=== PATIENT | female | born 1960 | race African-American/Black ===

== ENCOUNTER 2020-02-07 19:37 | Inpatient (IN) | payer MEDICAID ==
[~2020-02-07] VITALS: Ht 105 cm; Wt 76.2 kg
[2020-02-07 19:45] VITALS: BP 152/80
[2020-02-07 20:00] VITALS: BP 152/80
[2020-02-07] MEDS ORDERED: ACETAMINOPHEN 325MG TABLET PO PRN (23:15)
[2020-02-07] MEDS ORDERED: ALBUTEROL 6.7GM HFA INHALER ORI PRN (23:15)
[2020-02-07] MEDS ORDERED: HYDROCODONE/ACETAMINOPHEN 5/325MG TABLET PO PRN (23:15)
[2020-02-07] MEDS ORDERED: ALBUTEROL (0.083%) 2.5MG/3ML NEB HHN PRN (23:15)
[2020-02-07] MEDS ORDERED: NON FORMULARY PATIENT HOME MED XX SCH (23:15)
[2020-02-07] MEDS ORDERED: ATORVASTATIN CALCIUM 40MG TABLET PO SCH (23:15)
[2020-02-08 07:30] LABS: BASOPHILS % 0.5 % (0.0-2.0); EOSINOPHILS % 6.5 % (0.0-5.0); HEMATOCRIT. 37.1 % (36.0-48.0); HEMOGLOBIN. 12.3 g/dL (12.0-16.0); LYMPHOCYTES % 25.1 % (20.0-50.0); MEAN CORPUSCULAR HEMOGLOBIN 26.7 pg (28.0-32.0); MEAN CORPUSCULAR VOLUME 80.8 fL (81.0-99.0); MEAN PLATELET VOLUME 8.1 fl (7.4-10.4); MONOCYTES % 9.7 % (2.0-8.0); NEUTROPHILS % 58.2 % (40.0-76.0); PLATELET 242 x1000/uL (130-400); RED BLOOD CELL COUNT 4.59 mill/uL (4.2-5.4); RED CELL DISTRIBUTION WIDTH 15.5 % (11.6-14.6)
[2020-02-08 07:42] VITALS: BP 123/72
[2020-02-08 07:47] LABS: CHLORIDE 106 mEq/L (98-107)
[2020-02-08] MEDS ORDERED: ASPIRIN 325MG EC TABLET PO SCH (09:00)
[2020-02-08] MEDS ORDERED: BISACODYL 5MG TABLET PO PRN (09:00)
[2020-02-08] MEDS ORDERED: NIFEDIPINE XL 60MG TAB PO SCH (09:00)
[2020-02-08] MEDS ORDERED: LACTULOSE 20G/30ML UDC PO PRN (09:00)
[2020-02-08] MEDS ORDERED: LISINOPRIL 10MG TABLET PO SCH (09:00)
[2020-02-08] MEDS ORDERED: NA PHOS,M-B/NA PHOS,DI-BA ENEMA 118ML PR PRN (09:00)
[2020-02-08] MEDS ORDERED: BUDESONIDE 0.5MG/2ML NEB HHN SCH (09:00)
[2020-02-08] MEDS: CARVEDILOL 12.5MG TABLET PO SCH ×2 (09:47→18:18)
[2020-02-08 14:44] LABS: CREATINE KINASE 41 IU/L (26-192)
[2020-02-08] MEDS ORDERED: MONTELUKAST SODIUM 10MG TABLET PO SCH (17:00)
[2020-02-08 18:12] LABS: T4 FREE 1.61 ng/dL (0.76-1.46)
[2020-02-08] MEDS ORDERED: MORPHINE SULFATE 2 MG/ML CPJ (NOT FOR IM USE) IV PRN (18:15)
[2020-02-08] MEDS ORDERED: NICARDIPINE 100 MG in SODIUM CHLORIDE 0.9% 60 ML IV PRN (18:15)
[2020-02-08] MEDS ORDERED: DEXT 5%/LACTATED RINGERS 1,000 ML IV SCH (18:45)
[2020-02-08 19:00] VITALS: BP 108/73
[2020-02-08 20:45] LABS: CLARITY URINE CLEAR (CLEAR); COLOR URINE YELLOW (YELLOW); KETONES URINE NEGATIVE (NEGATIVE); LEUKOCYTE ESTERASE URINE 3+ (NEGATIVE); NITRITE URINE NEGATIVE (NEGATIVE); OCCULT BLOOD URINE NEGATIVE (NEGATIVE); PH URINE 6.5 (4.5-8.0); PROTEIN URINE NEGATIVE (NEGATIVE); SPECIFIC GRAVITY URINE 1.019 (1.005-1.030); UROBILINOGEN URINE 0.2 E.U./dL (0.2-1.0)
[2020-02-08] MEDS ORDERED: LEVETIRACETAM 500MG PREMIX 100 ML IV SCH (21:00)
[2020-02-08 21:49] LABS: *AMPHETAMINES SCREEN URINE NEGATIVE (NEGATIVE); *BARBITURATES SCREEN URINE NEGATIVE (NEGATIVE); *BENZODIAZEPINES SCREEN URINE NEGATIVE (NEGATIVE); *COCAINE SCREEN URINE PRESUMTIVE POSITIVE (NEGATIVE); METHADONE URINE SCREEN NEGATIVE (NEGATIVE)
[2020-02-08 21:50] LABS: CANNABINOID URINE SCREEN NEGATIVE (NEGATIVE); OPIATES URINE SCREEN NEGATIVE (NEGATIVE); PHENCYCLIDINE URINE SCREEN NEGATIVE (NEGATIVE)
[2020-02-09] MEDS ORDERED: LIP40 MT (01:29)
[2020-02-09] MEDS ORDERED: NIFE90TA2 PO (01:29)
[2020-02-09] MEDS ORDERED: CEPHULAC (01:29)
[2020-02-09] MEDS ORDERED: HYDR-3281 PO (01:29)
[2020-02-09] MEDS ORDERED: MONT10TA21 PO (01:29)
[2020-02-09] MEDS ORDERED: TOPUD PO (01:29)
[2020-02-09] MEDS ORDERED: COR12 PO (01:29)
[2020-02-09] MEDS ORDERED: ACET650S27 RC (01:29)
[2020-02-09] MEDS ORDERED: CLOPIDOGREL 75MG TABLET PO SCH (09:00)
== END 2020-02-08 19:50 | disposition short-term general hospital (02) | DRG 45 ==
PROVIDERS: ADMIT Physical Medicine & Rehabilitation Spinal Cord Injury Medicine; ATTEND Family Medicine Adult Medicine
DX: I63.9 Cerebral infarction, unspecified (principal); G82.50 Quadriplegia, unspecified; R47.1 Dysarthria and anarthria; R47.01 Aphasia; R13.10 Dysphagia, unspecified; I50.42 Chronic combined systolic (congestive) and diastolic (congestive) heart failure; N18.9 Chronic kidney disease, unspecified; I13.0 Hypertensive heart and chronic kidney disease with heart failure and stage 1 through stage 4 chronic kidney disease, or unspecified chronic kidney disease; N17.9 Acute kidney failure, unspecified; J44.9 Chronic obstructive pulmonary disease, unspecified; M06.9 Rheumatoid arthritis, unspecified; E03.9 Hypothyroidism, unspecified; R53.81 Other malaise; F14.10 Cocaine abuse, uncomplicated; E44.0 Moderate protein-calorie malnutrition; E78.5 Hyperlipidemia, unspecified; E78.00 Pure hypercholesterolemia, unspecified; F20.0 Paranoid schizophrenia; I42.9 Cardiomyopathy, unspecified; Z68.44 Body mass index [BMI] 60.0-69.9, adult; Z90.710 Acquired absence of both cervix and uterus; Z86.73 Personal history of transient ischemic attack (TIA), and cerebral infarction without residual deficits; Z93.1 Gastrostomy status
CPT/HCPCS: 36415; 70544; 70553; 71046; 80053; 80305; 81003; 82550; 83036; 83880; 84134; 84439; 84481; 85025; 92523; 92610; 93005; 97116; 97162; 97166; 97530; 97535; J1953

== ENCOUNTER 2020-02-08 19:28 | Inpatient (IN) | payer MEDICAID ==
[2020-02-08] VITALS (7 sets, daily range): BP systolic 101–131; BP diastolic 56–76
[~2020-02-08] VITALS: Ht 170.2 cm; Wt 43.6 kg
[2020-02-08] MEDS ORDERED: NICARDIPINE 50 MG in SODIUM CHLORIDE 0.9% 230 ML IV PRN (20:30)
[2020-02-08] MEDS ORDERED: MORPHINE SULFATE 2 MG/ML CPJ (NOT FOR IM USE) IV PRN (20:30)
[2020-02-08] MEDS ORDERED: NICARDIPINE 100 MG in SODIUM CHLORIDE 0.9% 60 ML IV PRN (21:00)
[2020-02-08] MEDS: DEXT 5%/LACTATED RINGERS 1,000 ML IV SCH (21:41)
[2020-02-08] MEDS: LEVETIRACETAM 500MG PREMIX 100 ML IV SCH (23:07)
[2020-02-09] VITALS (74 sets, daily range): BP systolic 96–156; BP diastolic 41–96
[2020-02-09] MEDS ORDERED: LACTULOSE 20G/30ML UDC PO PRN (00:45)
[2020-02-09] MEDS ORDERED: HYDR-3281 PO (01:29)
[2020-02-09] MEDS ORDERED: NIFE90TA2 PO (01:29)
[2020-02-09] MEDS ORDERED: COR12 PO (01:29)
[2020-02-09] MEDS ORDERED: ACET650S27 RC (01:29)
[2020-02-09] MEDS ORDERED: CEPHULAC (01:29)
[2020-02-09] MEDS ORDERED: MONT10TA21 PO (01:29)
[2020-02-09] MEDS ORDERED: LIP40 MT (01:29)
[2020-02-09] MEDS ORDERED: TOPUD PO (01:29)
[2020-02-09] MEDS ORDERED: HYDROCODONE/ACETAMINOPHEN 5/325MG TABLET PO PRN (01:30)
[2020-02-09] MEDS ORDERED: BISACODYL 5MG TABLET PO PRN (01:30)
[2020-02-09] MEDS ORDERED: ACETAMINOPHEN 325MG TABLET PO PRN (01:30)
[2020-02-09 05:48] LABS: BASOPHILS % 0.7 % (0.0-2.0); EOSINOPHILS % 6.4 % (0.0-5.0); HEMATOCRIT. 37.6 % (36.0-48.0); HEMOGLOBIN. 12.3 g/dL (12.0-16.0); MEAN CORPUSCULAR HEMOGLOBIN 26.5 pg (28.0-32.0); MEAN CORPUSCULAR VOLUME 80.8 fL (81.0-99.0); MONOCYTES % 8.8 % (2.0-8.0); NEUTROPHILS % 56.1 % (40.0-76.0); PLATELET 255 x1000/uL (130-400); RED BLOOD CELL COUNT 4.65 mill/uL (4.2-5.4); RED CELL DISTRIBUTION WIDTH 15.1 % (11.6-14.6)
[2020-02-09] MEDS: LEVETIRACETAM 500MG PREMIX 100 ML IV SCH ×2 (08:44→20:45)
[2020-02-09] MEDS: NIFEDIPINE XL 60MG TAB PO SCH (09:29)
[2020-02-09] MEDS: CARVEDILOL 12.5MG TABLET PO SCH ×2 (09:29→20:44)
[2020-02-09] MEDS: DEXT 5%/LACTATED RINGERS 1,000 ML IV SCH (16:46)
[2020-02-09] MEDS: ATORVASTATIN CALCIUM 40MG TABLET PO SCH (20:44)
[2020-02-09] MEDS: ALBUTEROL (0.083%) 2.5MG/3ML NEB HHN SCH (21:00)
[2020-02-10] VITALS (69 sets, daily range): BP systolic 85–157; BP diastolic 31–93
[2020-02-10] MEDS: ALBUTEROL (0.083%) 2.5MG/3ML NEB HHN SCH ×4 (01:32→20:33)
[2020-02-10 05:51] LABS: BASOPHILS % 0.4 % (0.0-2.0); HEMATOCRIT. 38.5 % (36.0-48.0); HEMOGLOBIN. 12.7 g/dL (12.0-16.0); LYMPHOCYTES % 30.8 % (20.0-50.0); MEAN CORPUSCULAR HEMOGLOBIN 26.5 pg (28.0-32.0); MEAN CORPUSCULAR VOLUME 80.3 fL (81.0-99.0); MEAN PLATELET VOLUME 8.1 fl (7.4-10.4); MONOCYTES % 5.5 % (2.0-8.0); NEUTROPHILS % 56.3 % (40.0-76.0); PLATELET 252 x1000/uL (130-400); RED CELL DISTRIBUTION WIDTH 15.3 % (11.6-14.6)
[2020-02-10 06:12] LABS: PHOSPHORUS 3.7 mg/dL (2.5-4.9)
[2020-02-10] MEDS: LEVETIRACETAM 500MG PREMIX 100 ML IV SCH ×2 (09:16→20:02)
[2020-02-10] MEDS: CARVEDILOL 12.5MG TABLET PO SCH ×2 (09:17→20:03)
[2020-02-10] MEDS: NIFEDIPINE XL 60MG TAB PO SCH (09:17)
[2020-02-10] MEDS ORDERED: AMLODIPINE 5MG TABLET PO NR (19:00)
[2020-02-10] MEDS: AMLODIPINE 5MG TABLET PO SCH (20:02)
[2020-02-10] MEDS: ATORVASTATIN CALCIUM 40MG TABLET PO SCH (20:02)
[2020-02-10] MEDS ORDERED: CLONIDINE 0.1MG TABLET PO PRN (22:15)
[2020-02-11] VITALS: BP 151/87
[2020-02-11] MEDS ORDERED: HYDRALAZINE 20MG/ML VIAL IV ONE (01:00)
[2020-02-11] MEDS ORDERED: HYDRALAZINE HCL 10MG TABLET PO SCH (02:00)
[2020-02-11 04:00] VITALS: BP 143/87
[2020-02-11 06:21] LABS: BASOPHILS % 0.5 % (0.0-2.0); EOSINOPHILS % 6.8 % (0.0-5.0); HEMATOCRIT. 37.3 % (36.0-48.0); HEMOGLOBIN. 12.3 g/dL (12.0-16.0); LYMPHOCYTES % 25.6 % (20.0-50.0); MEAN CORPUSCULAR HEMOGLOBIN 26.4 pg (28.0-32.0); MEAN CORPUSCULAR VOLUME 80.2 fL (81.0-99.0); MEAN PLATELET VOLUME 8.7 fl (7.4-10.4); MONOCYTES % 9.9 % (2.0-8.0); NEUTROPHILS % 57.2 % (40.0-76.0); PLATELET 205 x1000/uL (130-400); RED BLOOD CELL COUNT 4.65 mill/uL (4.2-5.4)
[2020-02-11] MEDS: ALBUTEROL (0.083%) 2.5MG/3ML NEB HHN SCH ×4 (07:55→20:43)
[2020-02-11 08:00] VITALS: BP 154/90
[2020-02-11] MEDS: CARVEDILOL 12.5MG TABLET PO SCH (09:48)
[2020-02-11] MEDS: AMLODIPINE 5MG TABLET PO SCH ×2 (09:48→20:24)
[2020-02-11] MEDS: LEVETIRACETAM 500MG PREMIX 100 ML IV SCH ×2 (09:48→20:25)
[2020-02-11 12:00] VITALS: BP 154/96
[2020-02-11 16:00] VITALS: BP 147/78
[2020-02-11 20:19] VITALS: BP 127/80
[2020-02-11] MEDS: ATORVASTATIN CALCIUM 40MG TABLET PO SCH (20:24)
[2020-02-11] MEDS: HYDRALAZINE HCL 10MG TABLET PO SCH (20:25)
[2020-02-12] VITALS (7 sets, daily range): BP systolic 116–147; BP diastolic 70–88
[2020-02-12] MEDS: ALBUTEROL (0.083%) 2.5MG/3ML NEB HHN SCH ×4 (01:19→20:00)
[2020-02-12 07:54] LABS: BASOPHILS % 0.6 % (0.0-2.0); EOSINOPHILS % 7.2 % (0.0-5.0); HEMATOCRIT. 37.6 % (36.0-48.0); HEMOGLOBIN. 12.7 g/dL (12.0-16.0); LYMPHOCYTES % 25.5 % (20.0-50.0); MEAN CORPUSCULAR VOLUME 80.1 fL (81.0-99.0); MEAN PLATELET VOLUME 8.1 fl (7.4-10.4); MONOCYTES % 9.7 % (2.0-8.0); PLATELET 246 x1000/uL (130-400); RED CELL DISTRIBUTION WIDTH 15.1 % (11.6-14.6)
[2020-02-12] MEDS: AMLODIPINE 5MG TABLET PO SCH ×2 (09:08→20:17)
[2020-02-12] MEDS: HYDRALAZINE HCL 10MG TABLET PO SCH ×2 (09:08→20:18)
[2020-02-12] MEDS: LEVETIRACETAM 500MG PREMIX 100 ML IV SCH ×2 (09:08→20:17)
[2020-02-12] MEDS ORDERED: BARIUM SULFATE 176 GM SUSP.RECON ONE (13:33)
[2020-02-12] MEDS: ATORVASTATIN CALCIUM 40MG TABLET PO SCH (20:17)
[2020-02-13] VITALS: BP 140/75
[2020-02-13] MEDS: ALBUTEROL (0.083%) 2.5MG/3ML NEB HHN SCH ×3 (02:58→13:35)
[2020-02-13 04:00] VITALS: BP 130/70
[2020-02-13 08:00] VITALS: BP 160/101
[2020-02-13] MEDS: AMLODIPINE 5MG TABLET PO SCH (09:50)
[2020-02-13] MEDS: HYDRALAZINE HCL 10MG TABLET PO SCH (09:50)
[2020-02-13] MEDS: LEVETIRACETAM 500MG PREMIX 100 ML IV SCH (09:50)
[2020-02-13 11:50] VITALS: BP 156/97
[2020-02-13] MEDS ORDERED: ASPIRIN 81MG TABLET PO SCH (13:00)
[2020-02-13] MEDS ORDERED: CLOPIDOGREL 75MG TABLET PO SCH (13:00)
[2020-02-13 15:20] VITALS: BP 120/84
== END 2020-02-13 15:45 | DRG 45 ==
LOC: MICUNO 19:28 → 8WST 02-10 21:07
PROVIDERS: ADMIT Family Medicine Adult Medicine; ATTEND Family Medicine Adult Medicine
DX: I63.9 Cerebral infarction, unspecified (principal); G82.50 Quadriplegia, unspecified; N17.9 Acute kidney failure, unspecified; I13.0 Hypertensive heart and chronic kidney disease with heart failure and stage 1 through stage 4 chronic kidney disease, or unspecified chronic kidney disease; F20.0 Paranoid schizophrenia; I42.9 Cardiomyopathy, unspecified; I50.40 Unspecified combined systolic (congestive) and diastolic (congestive) heart failure; I61.1 Nontraumatic intracerebral hemorrhage in hemisphere, cortical; J44.9 Chronic obstructive pulmonary disease, unspecified; M06.9 Rheumatoid arthritis, unspecified; N18.3 Chronic kidney disease, stage 3 (moderate); R13.10 Dysphagia, unspecified; E03.9 Hypothyroidism, unspecified; E46 Unspecified protein-calorie malnutrition; E78.5 Hyperlipidemia, unspecified; F14.90 Cocaine use, unspecified, uncomplicated; R47.01 Aphasia; R47.1 Dysarthria and anarthria; I34.0 Nonrheumatic mitral (valve) insufficiency; I69.359 Hemiplegia and hemiparesis following cerebral infarction affecting unspecified side; Z93.1 Gastrostomy status; Z79.899 Other long term (current) drug therapy; Z68.1 Body mass index [BMI] 19.9 or less, adult
CPT/HCPCS: 36415; 71046; 74230; 80048; 83735; 84100; 85025; 92523; 92610; 92611; 93005; 93306; 93880; 94640; 97116; 97162; 97166; 97530; J1953; J3490; J7050; J7121

== ENCOUNTER 2020-02-13 15:50 | Inpatient (IN) | payer MEDICAID ==
[~2020-02-13] VITALS: Ht 170.2 cm; Wt 48.7 kg
[~2020-02-13 15:50] MED LIST: ACET650S27 RC; CEPHULAC; COR12 PO; LIP40 MT; MONT10TA21 PO; NIFE90TA2 PO; TOPUD PO
[2020-02-13 16:00] VITALS: BP 139/73
[2020-02-13] MEDS ORDERED: BISACODYL 5MG TABLET PO PRN (16:30)
[2020-02-13 19:06] VITALS: BP 139/73
[2020-02-13 20:00] VITALS: BP 138/83
[2020-02-13] MEDS: ATORVASTATIN CALCIUM 40MG TABLET PO SCH (22:16)
[2020-02-13] MEDS: AMLODIPINE 5MG TABLET PO SCH (22:17)
[2020-02-13] MEDS: LEVETIRACETAM 500MG TABLET PO SCH (22:18)
[2020-02-13] MEDS: HYDRALAZINE HCL 10MG TABLET PO SCH (22:18)
[2020-02-14 06:02] LABS: CHLORIDE 108 mEq/L (98-107)
[2020-02-14 06:32] LABS: BASOPHILS % 0.6 % (0.0-2.0); HEMATOCRIT. 37.9 % (36.0-48.0); HEMOGLOBIN. 12.5 g/dL (12.0-16.0); LYMPHOCYTES % 23.6 % (20.0-50.0); MEAN CORPUSCULAR HEMOGLOBIN 26.5 pg (28.0-32.0); MEAN CORPUSCULAR VOLUME 80.4 fL (81.0-99.0); MONOCYTES % 10.3 % (2.0-8.0); NEUTROPHILS % 58.5 % (40.0-76.0); PLATELET 238 x1000/uL (130-400); RED BLOOD CELL COUNT 4.72 mill/uL (4.2-5.4); RED CELL DISTRIBUTION WIDTH 15.3 % (11.6-14.6)
[2020-02-14 07:50] VITALS: BP 131/76
[2020-02-14] MEDS: LEVETIRACETAM 500MG TABLET PO SCH ×2 (08:33→20:38)
[2020-02-14] MEDS: AMLODIPINE 5MG TABLET PO SCH ×2 (08:34→20:39)
[2020-02-14] MEDS: CLOPIDOGREL 75MG TABLET PO SCH (08:34)
[2020-02-14] MEDS: HYDRALAZINE HCL 10MG TABLET PO SCH ×2 (08:34→20:38)
[2020-02-14] MEDS: ASPIRIN 81MG TABLET PO SCH (08:34)
[2020-02-14] MEDS: ALBUTEROL (0.083%) 2.5MG/3ML NEB HHN SCH ×3 (10:57→21:25)
[2020-02-14 12:31] LABS: CLARITY URINE CLEAR (CLEAR); COLOR URINE YELLOW (YELLOW); KETONES URINE NEGATIVE (NEGATIVE); LEUKOCYTE ESTERASE URINE 2+ (NEGATIVE); NITRITE URINE NEGATIVE (NEGATIVE); OCCULT BLOOD URINE NEGATIVE (NEGATIVE); PROTEIN URINE NEGATIVE (NEGATIVE); SPECIFIC GRAVITY URINE 1.019 (1.005-1.030)
[2020-02-14] MEDS: LACTULOSE 20G/30ML UDC PO PRN (14:32)
[2020-02-14 15:22] VITALS: BP_SYST 125; BP_SYST 126; BP_SYST 137; BP_DIAS 74; BP_DIAS 80; BP_DIAS 86
[2020-02-14 20:00] VITALS: BP 128/84
[2020-02-14] MEDS: ATORVASTATIN CALCIUM 40MG TABLET PO SCH (20:38)
[2020-02-15] MEDS: ALBUTEROL (0.083%) 2.5MG/3ML NEB HHN SCH ×3 (02:15→19:55)
[2020-02-15 06:42] LABS: CHLORIDE 107 mEq/L (98-107)
[2020-02-15 06:45] LABS: BASOPHILS % 0.5 % (0.0-2.0); EOSINOPHILS % 7.1 % (0.0-5.0); LYMPHOCYTES % 26.6 % (20.0-50.0); MEAN CORPUSCULAR HEMOGLOBIN 26.7 pg (28.0-32.0); MEAN PLATELET VOLUME 8.1 fl (7.4-10.4); NEUTROPHILS % 55.8 % (40.0-76.0); PLATELET 233 x1000/uL (130-400); RED BLOOD CELL COUNT 4.88 mill/uL (4.2-5.4); RED CELL DISTRIBUTION WIDTH 15.3 % (11.6-14.6)
[2020-02-15 06:50] LABS: PHOSPHORUS 4.3 mg/dL (2.5-4.9)
[2020-02-15 06:51] LABS: LDL CHOLESTEROL 49 mg/dL (5-100)
[2020-02-15 06:52] LABS: TOTAL IRON BINDING CAPACITY 305 ug/dL (250-450)
[2020-02-15 06:53] LABS: HDL CHOLESTEROL 67 mg/dL (40-59)
[2020-02-15 06:55] LABS: T4 FREE 1.21 ng/dL (0.76-1.46)
[2020-02-15 07:01] LABS: FOLIC ACID (FOLATE) SERUM 12.4 ng/mL (>5.38)
[2020-02-15 07:24] VITALS: BP 150/74
[2020-02-15] MEDS: CLOPIDOGREL 75MG TABLET PO SCH (08:42)
[2020-02-15] MEDS: ASPIRIN 81MG TABLET PO SCH (08:42)
[2020-02-15] MEDS: HYDRALAZINE HCL 10MG TABLET PO SCH (08:42)
[2020-02-15] MEDS: LEVETIRACETAM 500MG TABLET PO SCH ×2 (08:42→21:12)
[2020-02-15] MEDS: AMLODIPINE 5MG TABLET PO SCH (08:42)
[2020-02-15] MEDS ORDERED: MAGNESIUM 2 G PREMIX 50 ML IV ONE (12:30)
[2020-02-15 14:01] VITALS: BP 130/77
[2020-02-15] MEDS: HYDRALAZINE HCL 50MG TABLET PO SCH ×2 (14:01→21:14)
[2020-02-15 14:03] VITALS: BP_SYST 125; BP_SYST 137; BP_DIAS 78; BP_DIAS 91
[2020-02-15 20:00] VITALS: BP 116/77
[2020-02-15] MEDS: ATORVASTATIN CALCIUM 40MG TABLET PO SCH (21:12)
[2020-02-16] MEDS: HYDRALAZINE HCL 50MG TABLET PO SCH ×3 (05:47→21:30)
[2020-02-16 07:25] LABS: BASOPHILS % 0.5 % (0.0-2.0); EOSINOPHILS % 7.3 % (0.0-5.0); HEMATOCRIT. 38.5 % (36.0-48.0); HEMOGLOBIN. 12.9 g/dL (12.0-16.0); LYMPHOCYTES % 21.6 % (20.0-50.0); MEAN CORPUSCULAR HEMOGLOBIN 26.6 pg (28.0-32.0); MEAN CORPUSCULAR VOLUME 79.5 fL (81.0-99.0); MEAN PLATELET VOLUME 7.9 fl (7.4-10.4); MONOCYTES % 9.4 % (2.0-8.0); NEUTROPHILS % 61.2 % (40.0-76.0); PLATELET 230 x1000/uL (130-400); RED BLOOD CELL COUNT 4.84 mill/uL (4.2-5.4); RED CELL DISTRIBUTION WIDTH 15.2 % (11.6-14.6)
[2020-02-16 07:31] LABS: CHLORIDE 107 mEq/L (98-107)
[2020-02-16 07:37] LABS: PHOSPHORUS 4.3 mg/dL (2.5-4.9)
[2020-02-16 08:08] VITALS: BP 109/55
[2020-02-16] MEDS: AMLODIPINE 5MG TABLET PO SCH (08:55)
[2020-02-16] MEDS: ALBUTEROL (0.083%) 2.5MG/3ML NEB HHN SCH ×4 (09:07→21:37)
[2020-02-16] MEDS: CLOPIDOGREL 75MG TABLET PO SCH (09:23)
[2020-02-16] MEDS: LEVETIRACETAM 500MG TABLET PO SCH ×2 (09:23→21:31)
[2020-02-16] MEDS: ASPIRIN 81MG TABLET PO SCH (09:23)
[2020-02-16 20:00] VITALS: BP 122/62
[2020-02-16] MEDS: ATORVASTATIN CALCIUM 40MG TABLET PO SCH (21:30)
[2020-02-17] MEDS: HYDRALAZINE HCL 50MG TABLET PO SCH ×3 (05:54→21:40)
[2020-02-17] MEDS: ALBUTEROL (0.083%) 2.5MG/3ML NEB HHN SCH ×3 (07:30→22:28)
[2020-02-17 08:02] LABS: PHOSPHORUS 4.7 mg/dL (2.5-4.9)
[2020-02-17 08:03] VITALS: BP 129/60
[2020-02-17] MEDS: LEVETIRACETAM 500MG TABLET PO SCH ×2 (09:54→21:41)
[2020-02-17] MEDS: AMLODIPINE 5MG TABLET PO SCH (09:55)
[2020-02-17] MEDS: ASPIRIN 81MG TABLET PO SCH (09:55)
[2020-02-17] MEDS: CLOPIDOGREL 75MG TABLET PO SCH (09:55)
[2020-02-17 14:04] VITALS: BP_SYST 122; BP_SYST 131; BP_DIAS 76; BP_DIAS 79
[2020-02-17 20:00] VITALS: BP_SYST 105; BP_SYST 107; BP_DIAS 69; BP_DIAS 70
[2020-02-17] MEDS: ATORVASTATIN CALCIUM 40MG TABLET PO SCH (21:41)
[2020-02-18] MEDS: ALBUTEROL (0.083%) 2.5MG/3ML NEB HHN SCH ×4 (04:08→21:24)
[2020-02-18] MEDS: HYDRALAZINE HCL 50MG TABLET PO SCH ×3 (06:00→21:27)
[2020-02-18 08:00] VITALS: BP 135/83
[2020-02-18] MEDS: LEVETIRACETAM 500MG TABLET PO SCH ×2 (09:08→21:27)
[2020-02-18] MEDS: ASPIRIN 81MG TABLET PO SCH (09:08)
[2020-02-18] MEDS: ACETAMINOPHEN 325MG TABLET PO PRN ×2 (09:08→13:35)
[2020-02-18] MEDS: CLOPIDOGREL 75MG TABLET PO SCH (09:09)
[2020-02-18] MEDS: AMLODIPINE 5MG TABLET PO SCH (09:09)
[2020-02-18 13:15] VITALS: BP_SYST 111; BP_SYST 132; BP_SYST 139; BP_DIAS 70; BP_DIAS 85; BP_DIAS 88
[2020-02-18 20:00] VITALS: BP_SYST 118; BP_SYST 119; BP_DIAS 60; BP_DIAS 68
[2020-02-18] MEDS: ATORVASTATIN CALCIUM 40MG TABLET PO SCH (21:27)
[2020-02-19] MEDS: ACETAMINOPHEN 325MG TABLET PO PRN (00:21)
[2020-02-19] MEDS: ALBUTEROL (0.083%) 2.5MG/3ML NEB HHN SCH ×4 (01:27→20:20)
[2020-02-19] MEDS: HYDRALAZINE HCL 50MG TABLET PO SCH ×3 (05:18→22:17)
[2020-02-19] MEDS: LEVOTHYROXINE SODIUM 25MCG TABLET PO SCH (06:11)
[2020-02-19 08:00] VITALS: BP 135/78
[2020-02-19] MEDS: CLOPIDOGREL 75MG TABLET PO SCH (08:06)
[2020-02-19] MEDS: LEVETIRACETAM 500MG TABLET PO SCH ×2 (08:06→22:17)
[2020-02-19] MEDS: AMLODIPINE 5MG TABLET PO SCH (08:07)
[2020-02-19] MEDS: ASPIRIN 81MG TABLET PO SCH (08:07)
[2020-02-19 13:27] VITALS: BP 151/88
[2020-02-19 16:39] LABS: CLARITY URINE CLEAR (CLEAR); COLOR URINE YELLOW (YELLOW); KETONES URINE NEGATIVE (NEGATIVE); LEUKOCYTE ESTERASE URINE 2+ (NEGATIVE); NITRITE URINE NEGATIVE (NEGATIVE); OCCULT BLOOD URINE NEGATIVE (NEGATIVE); PH URINE 7.5 (4.5-8.0); PROTEIN URINE NEGATIVE (NEGATIVE); SPECIFIC GRAVITY URINE 1.019 (1.005-1.030); UROBILINOGEN URINE 0.2 E.U./dL (0.2-1.0)
[2020-02-19 20:00] VITALS: BP 123/72
[2020-02-19] MEDS: ATORVASTATIN CALCIUM 40MG TABLET PO SCH (22:17)
[2020-02-20] MEDS: HYDRALAZINE HCL 50MG TABLET PO SCH ×3 (06:00→21:54)
[2020-02-20 06:22] LABS: BASOPHILS % 0.4 % (0.0-2.0); HEMATOCRIT. 37.9 % (36.0-48.0); HEMOGLOBIN. 12.6 g/dL (12.0-16.0); LYMPHOCYTES % 18.3 % (20.0-50.0); MEAN CORPUSCULAR HEMOGLOBIN 26.7 pg (28.0-32.0); MEAN CORPUSCULAR VOLUME 80.6 fL (81.0-99.0); MEAN PLATELET VOLUME 8.2 fl (7.4-10.4); MONOCYTES % 8.4 % (2.0-8.0); NEUTROPHILS % 66.9 % (40.0-76.0); PLATELET 182 x1000/uL (130-400); RED CELL DISTRIBUTION WIDTH 15.3 % (11.6-14.6)
[2020-02-20] MEDS: LEVOTHYROXINE SODIUM 25MCG TABLET PO SCH (06:23)
[2020-02-20 07:12] LABS: CHLORIDE 107 mEq/L (98-107)
[2020-02-20 07:22] LABS: PHOSPHORUS 3.9 mg/dL (2.5-4.9)
[2020-02-20] MEDS: ALBUTEROL (0.083%) 2.5MG/3ML NEB HHN SCH ×3 (07:49→21:07)
[2020-02-20] MEDS: ASPIRIN 81MG TABLET PO SCH (08:23)
[2020-02-20] MEDS: CLOPIDOGREL 75MG TABLET PO SCH (08:23)
[2020-02-20 08:24] VITALS: BP 125/65
[2020-02-20] MEDS: LEVETIRACETAM 500MG TABLET PO SCH ×2 (08:25→21:55)
[2020-02-20] MEDS: AMLODIPINE 5MG TABLET PO SCH (08:26)
[2020-02-20 20:00] VITALS: BP 120/64
[2020-02-20] MEDS: ATORVASTATIN CALCIUM 40MG TABLET PO SCH (21:55)
[2020-02-21] MEDS: ALBUTEROL (0.083%) 2.5MG/3ML NEB HHN SCH ×4 (02:09→19:38)
[2020-02-21] MEDS: LEVOTHYROXINE SODIUM 25MCG TABLET PO SCH (06:55)
[2020-02-21] MEDS: HYDRALAZINE HCL 50MG TABLET PO SCH ×3 (06:56→21:32)
[2020-02-21 07:45] VITALS: BP 125/71
[2020-02-21] MEDS: AMLODIPINE 5MG TABLET PO SCH (08:49)
[2020-02-21] MEDS: CLOPIDOGREL 75MG TABLET PO SCH (08:49)
[2020-02-21] MEDS: ASPIRIN 81MG TABLET PO SCH (08:49)
[2020-02-21] MEDS: LEVETIRACETAM 500MG TABLET PO SCH ×2 (08:50→21:32)
[2020-02-21 20:00] VITALS: BP 115/68
[2020-02-21] MEDS: ATORVASTATIN CALCIUM 40MG TABLET PO SCH (21:32)
[2020-02-22] MEDS: ALBUTEROL (0.083%) 2.5MG/3ML NEB HHN SCH ×4 (02:16→21:27)
[2020-02-22] MEDS: HYDRALAZINE HCL 50MG TABLET PO SCH ×3 (06:02→21:30)
[2020-02-22] MEDS: LEVOTHYROXINE SODIUM 25MCG TABLET PO SCH (06:02)
[2020-02-22 07:00] LABS: BASOPHILS % 0.8 % (0.0-2.0); EOSINOPHILS % 6.5 % (0.0-5.0); HEMATOCRIT. 35.8 % (36.0-48.0); HEMOGLOBIN. 11.9 g/dL (12.0-16.0); LYMPHOCYTES % 23.1 % (20.0-50.0); MEAN CORPUSCULAR HEMOGLOBIN 26.6 pg (28.0-32.0); MEAN CORPUSCULAR VOLUME 80.3 fL (81.0-99.0); MEAN PLATELET VOLUME 8.7 fl (7.4-10.4); MONOCYTES % 8.1 % (2.0-8.0); NEUTROPHILS % 61.5 % (40.0-76.0); PLATELET 193 x1000/uL (130-400); RED BLOOD CELL COUNT 4.46 mill/uL (4.2-5.4); RED CELL DISTRIBUTION WIDTH 15.6 % (11.6-14.6)
[2020-02-22 07:22] LABS: CHLORIDE 108 mEq/L (98-107)
[2020-02-22 07:35] LABS: PHOSPHORUS 4.2 mg/dL (2.5-4.9)
[2020-02-22 08:00] VITALS: BP 128/69
[2020-02-22] MEDS: ASPIRIN 81MG TABLET PO SCH (09:19)
[2020-02-22] MEDS: AMLODIPINE 5MG TABLET PO SCH (09:19)
[2020-02-22] MEDS: CLOPIDOGREL 75MG TABLET PO SCH (09:20)
[2020-02-22] MEDS: LEVETIRACETAM 500MG TABLET PO SCH ×2 (09:20→21:30)
[2020-02-22] MEDS: ACETAMINOPHEN 325MG TABLET PO PRN (13:42)
[2020-02-22 20:00] VITALS: BP 108/57
[2020-02-22] MEDS: ATORVASTATIN CALCIUM 40MG TABLET PO SCH (21:30)
[2020-02-23] MEDS: ALBUTEROL (0.083%) 2.5MG/3ML NEB HHN SCH ×4 (02:26→21:13)
[2020-02-23 04:07] LABS: 25-HYDROXY VITAMIN D3 14 ng/mL (.)
[2020-02-23] MEDS: LEVOTHYROXINE SODIUM 25MCG TABLET PO SCH (06:07)
[2020-02-23] MEDS: HYDRALAZINE HCL 50MG TABLET PO SCH ×3 (06:07→21:14)
[2020-02-23 07:55] VITALS: BP 125/62
[2020-02-23] MEDS: ASPIRIN 81MG TABLET PO SCH (09:14)
[2020-02-23] MEDS: LEVETIRACETAM 500MG TABLET PO SCH ×2 (09:14→21:14)
[2020-02-23] MEDS: CLOPIDOGREL 75MG TABLET PO SCH (09:14)
[2020-02-23] MEDS: AMLODIPINE 5MG TABLET PO SCH (09:14)
[2020-02-23 12:58] VITALS: BP 143/56
[2020-02-23 20:00] VITALS: BP 107/62
[2020-02-23] MEDS: ATORVASTATIN CALCIUM 40MG TABLET PO SCH (21:14)
[2020-02-24] MEDS: LEVOTHYROXINE SODIUM 25MCG TABLET PO SCH (06:17)
[2020-02-24] MEDS: HYDRALAZINE HCL 50MG TABLET PO SCH ×3 (06:19→22:08)
[2020-02-24 07:03] LABS: BASOPHILS % 0.4 % (0.0-2.0); EOSINOPHILS % 5.9 % (0.0-5.0); HEMATOCRIT. 34.1 % (36.0-48.0); HEMOGLOBIN. 11.2 g/dL (12.0-16.0); LYMPHOCYTES % 22.2 % (20.0-50.0); MEAN CORPUSCULAR HEMOGLOBIN 26.2 pg (28.0-32.0); MEAN CORPUSCULAR VOLUME 79.6 fL (81.0-99.0); MEAN PLATELET VOLUME 8.6 fl (7.4-10.4); MONOCYTES % 9.2 % (2.0-8.0); NEUTROPHILS % 62.3 % (40.0-76.0); PLATELET 185 x1000/uL (130-400); RED BLOOD CELL COUNT 4.28 mill/uL (4.2-5.4); RED CELL DISTRIBUTION WIDTH 15.2 % (11.6-14.6)
[2020-02-24 07:56] VITALS: BP 142/71
[2020-02-24] MEDS: ALBUTEROL (0.083%) 2.5MG/3ML NEB HHN SCH ×3 (08:31→20:32)
[2020-02-24] MEDS: ASPIRIN 81MG TABLET PO SCH (09:01)
[2020-02-24] MEDS: AMLODIPINE 5MG TABLET PO SCH (09:01)
[2020-02-24] MEDS: LEVETIRACETAM 500MG TABLET PO SCH ×2 (09:01→22:08)
[2020-02-24] MEDS: CLOPIDOGREL 75MG TABLET PO SCH (09:01)
[2020-02-24 13:10] VITALS: BP 116/65
[2020-02-24 21:32] VITALS: BP 120/60
[2020-02-24] MEDS: ATORVASTATIN CALCIUM 40MG TABLET PO SCH (22:08)
[2020-02-25] MEDS: ALBUTEROL (0.083%) 2.5MG/3ML NEB HHN SCH ×4 (01:36→21:45)
[2020-02-25] MEDS: HYDRALAZINE HCL 50MG TABLET PO SCH ×3 (06:33→21:58)
[2020-02-25] MEDS: LEVOTHYROXINE SODIUM 25MCG TABLET PO SCH (06:34)
[2020-02-25 07:45] VITALS: BP 140/80
[2020-02-25] MEDS: CLOPIDOGREL 75MG TABLET PO SCH (08:51)
[2020-02-25] MEDS: AMLODIPINE 5MG TABLET PO SCH (08:52)
[2020-02-25] MEDS: ASPIRIN 81MG TABLET PO SCH (08:52)
[2020-02-25] MEDS: LEVETIRACETAM 500MG TABLET PO SCH ×2 (08:52→21:58)
[2020-02-25] MEDS ORDERED: ERGOCALCIFEROL 50000UNITS CAPSULE PO SCH (09:00)
[2020-02-25 20:00] VITALS: BP 140/74
[2020-02-25] MEDS: ATORVASTATIN CALCIUM 40MG TABLET PO SCH (21:58)
[2020-02-26] MEDS: ALBUTEROL (0.083%) 2.5MG/3ML NEB HHN SCH ×4 (01:00→21:08)
[2020-02-26 05:56] VITALS: BP_SYST 123; BP_SYST 130; BP_DIAS 78; BP_DIAS 84
[2020-02-26] MEDS: HYDRALAZINE HCL 50MG TABLET PO SCH ×3 (05:57→22:10)
[2020-02-26] MEDS: LEVOTHYROXINE SODIUM 25MCG TABLET PO SCH (06:02)
[2020-02-26 08:27] VITALS: BP 135/81
[2020-02-26 09:11] LABS: A/G RATIO 0.9 (0.7-1.7); ALBUMIN 3.4 g/dL (2.9-4.4); ALPHA-1-GLOBULIN 0.3 g/dL (0.0-0.4); ALPHA-2-GLOBULIN 0.8 g/dL (0.4-1.0); BETA GLOBULIN 0.9 g/dL (0.7-1.3); GAMMA GLOBULINS 1.7 g/dL (0.4-1.8); GLOBULIN TOTAL 3.7 g/dL (2.2-3.9); M-SPIKE Not Observed g/dL (Not Observed); TOTAL PROTEIN SERUM 7.1 g/dL (6.0-8.5); VITAMIN D 25-OH 24.1 ng/mL (30.0-100.0)
[2020-02-26 09:51] LABS: PHOSPHORUS 3.9 mg/dL (2.5-4.9)
[2020-02-26] MEDS: ASPIRIN 81MG TABLET PO SCH (10:39)
[2020-02-26] MEDS: LEVETIRACETAM 500MG TABLET PO SCH ×2 (10:40→22:09)
[2020-02-26] MEDS: AMLODIPINE 5MG TABLET PO SCH (10:40)
[2020-02-26] MEDS: CLOPIDOGREL 75MG TABLET PO SCH (10:40)
[2020-02-26] MEDS ORDERED: HYDR-4135 PO (12:32)
[2020-02-26] MEDS ORDERED: KEPP500 PO (12:32)
[2020-02-26] MEDS ORDERED: SENN-170 MT (12:32)
[2020-02-26] MEDS ORDERED: LEVO25TA7 PO (12:32)
[2020-02-26] MEDS ORDERED: CLOP75TA15 PO (12:32)
[2020-02-26] MEDS ORDERED: ASPI-1160 PO (12:32)
[2020-02-26] MEDS ORDERED: AMLO5TAB88 PO (12:32)
[2020-02-26] MEDS ORDERED: LIP40 MT (12:32)
[2020-02-26 20:00] VITALS: BP_SYST 121; BP_SYST 124; BP_DIAS 60; BP_DIAS 72
[2020-02-26] MEDS: ATORVASTATIN CALCIUM 40MG TABLET PO SCH (22:09)
[2020-02-27] MEDS: ALBUTEROL (0.083%) 2.5MG/3ML NEB HHN SCH ×2 (02:17→07:47)
[2020-02-27] MEDS: HYDRALAZINE HCL 50MG TABLET PO SCH (06:27)
[2020-02-27] MEDS: LEVOTHYROXINE SODIUM 25MCG TABLET PO SCH (06:27)
[2020-02-27 08:00] VITALS: BP 131/88
[2020-02-27 09:09] LABS: ANGIOTENSION CONVERTING ENZYME 54 U/L (14-82)
[2020-02-27] MEDS: ASPIRIN 81MG TABLET PO SCH (09:13)
[2020-02-27] MEDS: CLOPIDOGREL 75MG TABLET PO SCH (09:13)
[2020-02-27] MEDS: LEVETIRACETAM 500MG TABLET PO SCH (09:13)
[2020-02-27] MEDS: AMLODIPINE 5MG TABLET PO SCH (09:14)
[2020-02-27] MEDS: LACTULOSE 20G/30ML UDC PO PRN (09:21)
[2020-02-27 10:07] LABS: QFT MITOGEN VALUE 1.39 IU/mL (.); QFT TB GOLD PLUS Negative (Negative); QFT TB1 AG VALUE 0.19 IU/mL (.)
[2020-02-27 10:39] VITALS: BP 131/88
== END 2020-02-27 13:50 | disposition home health service (06) | DRG 58 ==
PROVIDERS: ADMIT Physical Medicine & Rehabilitation Spinal Cord Injury Medicine; ATTEND Family Medicine Adult Medicine
DX: I69.354 Hemiplegia and hemiparesis following cerebral infarction affecting left non-dominant side (principal); I63.9 Cerebral infarction, unspecified; I61.1 Nontraumatic intracerebral hemorrhage in hemisphere, cortical; I34.0 Nonrheumatic mitral (valve) insufficiency; I42.9 Cardiomyopathy, unspecified; I50.40 Unspecified combined systolic (congestive) and diastolic (congestive) heart failure; J44.9 Chronic obstructive pulmonary disease, unspecified; M06.9 Rheumatoid arthritis, unspecified; N17.9 Acute kidney failure, unspecified; N18.3 Chronic kidney disease, stage 3 (moderate); R13.10 Dysphagia, unspecified; R47.01 Aphasia; I13.0 Hypertensive heart and chronic kidney disease with heart failure and stage 1 through stage 4 chronic kidney disease, or unspecified chronic kidney disease; E03.9 Hypothyroidism, unspecified; E46 Unspecified protein-calorie malnutrition; E78.5 Hyperlipidemia, unspecified; F20.0 Paranoid schizophrenia; G82.50 Quadriplegia, unspecified; F14.10 Cocaine abuse, uncomplicated; R47.1 Dysarthria and anarthria; R53.81 Other malaise; R73.9 Hyperglycemia, unspecified; E83.42 Hypomagnesemia; E83.52 Hypercalcemia; R41.89 Other symptoms and signs involving cognitive functions and awareness; Z82.49 Family history of ischemic heart disease and other diseases of the circulatory system; Z90.711 Acquired absence of uterus with remaining cervical stump; Z93.1 Gastrostomy status; Z68.1 Body mass index [BMI] 19.9 or less, adult
CPT/HCPCS: 36415; 76536; 80048; 80053; 80061; 81003; 82140; 82164; 82306; 82330; 82340; 82533; 82575; 82607; 82652; 82728; 82746; 83036; 83540; 83550; 83735; 83970; 84100; 84105; 84134; 84155; 84165; 84439; 84443; 84481; 85025; 86480; 92523; 92610; 93970; 94640; 97110; 97112; 97116; 97162; 97166; 97530; 97535; J3475